=== PATIENT | male | born 1985 | race Caucasian/White ===

== ENCOUNTER 2025-08-26 20:27 | Emergency (ER) | payer OTHER, SELFPAY ==
--- OUTSIDE RECORDS SUMMARY | 2025-08-26 20:31 | XMS_ITS | Clinical Summary ---
Author Organization [address] Address [address] [place] [id number] Care Team Providers Care Inspector Fuel Hose Name Role Phone Unknown, Notinfile Primary Care Provider Unavail able Allergies No known active allergies Medications lidocaine viscous (XYLOCAINE) 2 % solutionIndicati ons:Strep pharyngitis Apply 10 mL to the mouth or throat every 6 (six) hours as needed (sore throat) May mix with 30 ml of Mylanta 100 mL 05/19/2025 Active Active Problems No known active problems Social History Tobacco Use Types Packs/Day Years Used Date Smoking Tobacco: Never Assessed Sex and Gender Information Value Date Recorded Sex Assigned at Not on file 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 Gender Identity Not on file Sexual Orientation Not on file Last Filed Vital Signs Vital Sign Reading Time Taken Comments Blood Pressure 144/83 05/19/2025 4:10 PM CDT Pulse 114 05/19/2025 4:10 PM CDT Temperature 37.1 C (98.8 F) 05/19/2025 4:10 PM CDT Respiratory Rate 20 05/19/2025 4:10 PM CDT Oxygen Saturation 95% 05/19/2025 4:10 PM CDT Inhaled Oxygen Concentration - - Weight 82.1 kg (181 lb 1.6 oz) 05/19/2025 4:10 P M CDT Height - - Body Mass Index - - Plan of Treatment Health Maintenance Due Date Last Done Comments Depression Screening 1983 Hepatitis C Screening 1983 Varicella Vaccines (1 of 2 - 13+ 2-dose series) 11/29/1996 Regular Well Visit/Exam 18-64 11/29/2001 HPV Vaccines (1 - 3-dose SCDM series) 11/29/2010 DTaP/Tdap/Td Vaccine (2 - Td or Tdap) 01/14/2032 01/13/2022, 08/14/2013, 04/04/2002 Hepatitis B Screening Completed 02/16/2025, 025 Covid-19 Vaccine Completed 05/11/2025, , 05/29/2023, Additional history exists Influenza Vaccine Completed 05/11/2025, , 05/29/2023, Additional history exists Pneumococcal vaccine <65 Aged Out No longer eligible based on patient's age to complete this topic Insurance [employer] Care Teams Inspector Fuel Hose Relationship Specialty Start Date End Date Unknown, Notinfile PCP - General 05/19/25
--- OUTSIDE RECORDS SUMMARY | 2025-08-26 20:31 | XMS_ITS | Clinical Summary ---
Author Organization [facility] Address [address] [place] [address] Phone Care Team Providers Care Manager Application Name Role Phone Jeannette Marquez DO Primary Care Provider [phone] Allergies No known active allergies Medications fexofenadine (OSMEL) 180 mg tablet Take 180 mg by mouth daily. Active ALPRAZolam (XANAX) 0.5 mg tablet TAKE 1 TABLET BY MOUTH 30 MINUTES TO 1 HOURS PRIOR TO PROCEDURE 2 Active traMADoL (ULTRAM) 50 mg tablet TAKE 1 TABLET BY MOUTH EVERY 6 HOURS 2 Active Active Problems No known active problems Family History Medical History Relation Name Comments Hypertension Brother Hypertension Father Hypertension Mother Asthma Neg Hx Bronchitis Neg Hx Cancer Neg Hx Diabetes Neg Hx Emphysema Neg Hx Heart Failure Neg Hx Lung Cancer Neg Hx Mesothelioma Neg Hx Relation Name Status Comments Brother Father Mother Social History Tobacco Use Types Packs/Day Years Used Date Smoking Tobacco: Never Smokeless Tobacco: Never Tobacco Cessation:Counseling Given: Not Answered Alcohol Use Standard Drinks/Week Comments Yes 0 (1 standard drink = 0.6 oz pur e alcohol) Sex and Gender Information Value Date Recorded Sex Assigned at Not on file Legal Sex Male 11:23 AM CDT Gender Identity Not on file Sexual Orientation Not on file Last Filed Vital Signs Vital Sign Reading Time Taken Comments Blood Pressure 143/95 07/09/2022 11:21 AM SPIRAL RUNNER Pulse 93 07/09/2022 11:21 AM SPIRAL RUNNER Temperature 36.7 C (98 F) 07/09/2022 11:21 AM SPIRAL RUNNER Respiratory Rate 18 07/09/2022 11:21 AM SPIRAL RUNNER Oxygen Saturation 97% 07/09/2022 11:21 AM SPIRAL RUNNER Inhaled Oxygen Concentration - - Weight 83 kg (183 lb) 07/09/2022 11:21 AM SPIRAL RUNNER Height 167.6 cm (5' 6) 07/09/2022 11:21 AM SPIRAL RUNNER Body Mass Index 29.54 07/09/2022 11:21 AM SPIRAL RUNNER Plan of Treatment Health Maintenance Due Date Last Done Comments DTAP/TDAP/TD VACCINES (1 - Tdap) 11/29/2002 HEPATITIS B VACCINES (1 of 3 - 19+ 3-dose series) 12/2002 INFLUENZA VACCINE (#1) 2025 HPV VACCINES (No Doses Required) Completed Insurance [employer] PPO [id number] Care Teams Manager Application Relationship Specialty Start Date End Date Jeannette Marquez DO [address] [place] [address] [place] [address] PCP - General Family Practice 08/05/19
--- OUTSIDE RECORDS SUMMARY | 2025-08-26 20:31 | XMS_ITS | Clinical Summary ---
Author Organization [facility] Address [facility] [place] [address] Care Team Providers Care Senior Receptionist Name Role Phone Pratima Frausto SURGICAL ASSISTANT CERTIFIED Primary Care Provider Allergies No known active allergies Medications loratadine (EQ ALLERGY RELIEF) 10 MG tablet Take 1 tablet (10 mg total) by mouth daily as needed for Allergies. Active CPAP MACHINE 1 Device by Does not apply route nightly at bedtime. Active Active Problems Problem Noted Date Diagnosed Date Vitamin D insufficiency 01/16/2025 Overview (01/16/2025): Component Ref Range & Units 01/09/25 1302 VITAMIN D 25 HYDROXY TOTAL S/P/B 30 - 100 ng/mL 26 Low Assessment & Plan (01/16/2025 3:35 PM CDT): Recommended to take vitamin D3 1000 IU daily. Depression screening negative 01/16/2025 Overview (01/16/2025): PHQ-9: 01/16/2025 2:58 PM 10/20/2024 2:30 PM PHQ2/PHQ 9 DEPRESSION SCREEN QUESTIONAIRE Little interest or pleasure in doing things Not at all Not at all Feeling down, depressed, or hopeless Not at all Not at all Patient Health Questionnaire-2 Score 0 0 Trouble falling or staying asleep, or sleeping too much Not at all Feeling tired or having little energy Not at all Poor appetite or overeating Not at all Feeling bad about yourself - or that you are a failure or have let yourself or your family down Not at all Trouble concentrating on things, such as reading the newspaper or watching television Not at all Moving or speaking so slowly that other people could have noticed? Or the opposite - being so fidgety or restless that you have been moving around a lot more than usual. Not at all Thoughts that you would be better off or hurting yourself in some way Not at all Patient Health Questionnaire-9 Score 0 How difficult have these problems made it for you to do your work, take care of things at home, or get along with other people? Not difficult at all Not difficult at all Assessment & Plan (01/16/2025 3:36 PM CDT): Depression screening negative. Discussed with patient. He endorsed no questions. Seasonal allergies 10/20/2024 Overview (10/20/2024): Initial visit 10/20/2024: He reports he takes generic Claritin as needed for seasonal allergies. He reports he does not take on a daily basis. Assessment & Plan (10/20/2024 3:49 PM ADMINISTRATIVE ASSISTANT OFFICE MANAGER): Continue loratadine 10 mg daily as needed. Mixed hyperlipidemia 10/20/2024 Overview (01/16/2025): Initial visit 10/20/2024: He reports he recently had lab testing done through his workplace and his cholesterol was elevated. He reports his cholesterol has been elevated the past however was recommended to make dietary changes. 10/03/2024: Total cholesterol 220 Triglycerides 152 HDL 48 LDL cholesterol 144 Component Ref Range & Units 01/09/25 1302 CHOLESTEROL <200 mg/dL 211 High HDL > OR = 40 mg/dL 47 TRIGLYCERIDES <150 mg/dL 83 LDL (CALCULATED) mg/dL (calc) 145 High Comment: Reference range: <100 Desirable range <100 mg/dL for primary prevention; <70 mg/dL for patients with CHD or diabetic patients with > or = 2 CHD risk factors. LDL-C is now calculated using the Nel calculation, which is a validated novel method providing better accuracy than the Friedewald equation in the estimation of LDL-C. Marcello HERNÁNDEZ et al. GAYLA. 2013;310(19): 6335-4270 (http://education.Predikt.Beneq/faq/LMD400) CHOL/HDL RATIO <5.0 (calc) 4.5 NON HDL CHOLESTEROL <130 mg/dL (calc) 164 High Comment: For patients with diabetes plus 1 major ASCVD risk factor, treating to a non-HDL-C goal of <100 mg/dL (LDL-C of <70 mg/dL) is considered a therapeutic option. Resulting Agency [facility] Assessment & Plan (01/16/2025 2:48 PM CDT): No medications necessary at this time. The 10-year ASCVD risk score (Elvia PASCUAL, et al., 2019) is: 1.4% Values used to calculate the score: Age: 39 years Sex: Male Is Non- : No Diabetic: No Tobacco smoker: No Systolic Blood Pressure: 123 mmHg Is BP treated: No HDL Cholesterol: 47 mg/dL Total Cholesterol: 211 mg/dL Assessment & Plan (10/20/2024 3:55 PM ADMINISTRATIVE ASSISTANT OFFICE MANAGER): ASCVD risk score calculated the patient's risk calculated is 1.4%. Discussed with him that there is no specific necessity to start him on cholesterol-lowering medication at this time. I recommend in the setting of his age and comorbidities that he has CT coronary artery calcium score completed which is an [id number] cost approximately $100. Patient is agreeable. Testing has been ordered. He was also counseled regarding dietary changes that can be made such as decreasing intake of saturated fats and increasing intake of dietary fiber through whole grains and legumes. Plan to repeat fasting lipid panel in 3 months to reevaluate in the setting of patient's lifestyle changes. Prediabetes 10/20/2024 Overview (01/16/2025): Initial visit 10/20/2024: Hemoglobin A1c 10/03/2024 returned 5.9%. Patient reports that he has recently made some dietary changes in the setting of receiving abnormal lab results. He reports he is attempted to cut out sugary and ultra processed foods. Component Ref Range & Units 01/09/25 1302 HGB A1C <5.7 % of total Hgb 5.7 High Assessment & Plan (01/16/2025 3:35 PM CDT): He is not interested in medication at this time. Discussed with patient that prediabetes can be improved with lifestyle modifications. Continue increasing exercise, especially aerobic exercise as well as integrating weight training into routine and continue making dietary changes. Assessment & Plan (10/20/2024 3:55 PM ADMINISTRATIVE ASSISTANT OFFICE MANAGER): Counseled patient to continue avoiding ultra processed foods and he was counseled at length regarding diet and exercise recommendations. Plan to repeat fasting blood glucose and hemoglobin A1c in 3 months to reevaluate in the setting of patient's lifestyle changes. Family history of coronary artery disease 2024 Overview (01/16/2025): 01/16/2025: Paternal grandfather with first one at 59 Family history of craniosynostosis 10/20/2024 Overview (10/20/2024): Initial visit 10/20/2024: In patient and in patient's son Overweight (BMI 25.0-29.9) 10/20/2024 Overview (10/20/2024): Initial visit 10/20/2024: Patient reports that he has recently made some dietary changes in the setting of receiving abnormal lab results. He reports he is attempted to cut out sugary and ultra processed foods. Assessment & Plan (01/16/2025 3:37 PM CDT): Weight has decreased. Continue diet and lifestyle modifications. Assessment & Plan (10/20/2024 3:53 PM ADMINISTRATIVE ASSISTANT OFFICE MANAGER): He is counseled at length regarding diet and exercise recommendations. Need for prophylactic vaccination against hepati tis B virus 10/20/2024 Overview (10/20/2024): Initial visit 10/20/2024: Patient denies known previous immunization against hepatitis B Assessment & Plan (01/16/2025 3:36 PM CDT): Office is out of hepatitis B vaccine at this time. Patient is to return for a nurse visit for hepatitis B immunization. In late April/early June 20, patient will receive third dose of hepatitis B vaccine. Assessment & Plan (10/20/2024 3:58 PM ADMINISTRATIVE ASSISTANT OFFICE MANAGER): Counseled patient and recommended vaccine series which is 3 dose series. He was given CDC VIS and endorsed no questions. Family history of hypertension 10/20/2024 Overview (10/20/2024): Initial visit 10/20/2024: In multiple family members Obstructive sleep apnea 01/15/2015 Overview (10/20/2024): Initial visit 10/20/2024: He reports he was diagnosed with severe obstructive sleep apnea in 2014. He reports he has been on CPAP since 2014 overnight at pressure 14. He reports he was previously seen by system planning engineer Patric Patel however has not been in a few years. Assessment & Plan (01/16/2025 3:36 PM CDT): Continue wearing CPAP. Recommended patient to reestablish care with pulmonology. Assessment & Plan (10/20/2024 3:49 PM ADMINISTRATIVE ASSISTANT OFFICE MANAGER): Continue wearing CPAP. Recommended patient to reestablish care with pulmonology. Resolved Problems Problem Noted Date Diagnosed Date Resolved Date Pharyngitis, acute 11/08/2016 Overview (10/20/2024): Date Onset: 11/08/2016 Encounters Date Type Department Care Team Description 07/03/2025 10:40 AM ADMINISTRATIVE ASSISTANT OFFICE MANAGER Allied Health/Nurse Visit [facility] Medical Group Multispecialty Care - [address] [place] [address] Berta Contreras, Imm/Inj 07/03/2025 Travel from Last 3 Months Immunizations Immunization Administration Dates Next Due FLUCELVAX (ccIIV3, TRIVALENT, 0.5mL) 05/09/2024 Hepatitis B (Recombivax Hb 10 Mcg) 07/03/2025,,10/20/2024 Influenza Adult (Generic) 05/29/2023,02/2022,06/28/2021,2019,05/14/2018 PFIZER COVID-19 (12+) MRNA, LNP-S, PF, JORGE-SUCROSE, 30 MCG/0.3 ML (COMIRNATY) 05/29/2023 Td, Adsorbed, Preservative F ree, Adult Use, Lf Unspecified 08/14/2013 Tdap (Generic) 01/13/2022 Family History Medical History Relation Comments Hypertension Brother Diabetes Father Hypertension Father Stroke Father No Known Problems Maternal Grandfather No Known Problems Maternal Grandmother Hypertension Mother Coronary artery disease Paternal Grandfather Stroke Paternal Grandfather Cancer Paternal Grandmother Leukemia Hypothyroidism Sister 1 No Known Problems Sister 2 Craniosynostosis Son Relation Status Comments Brother Alive Father Alive Maternal Grandfather Unknown Maternal Grandmother Mother Alive Paternal Grandfather Paternal Grandmother Sister 1 Alive Sister 2 Alive Son Alive Social History Tobacco Use Types Packs/Day Years Used Date Smoking Tobacco: Never Smokeless Tobacco: Never Tobacco Cessation:Counseling Given: No Alcohol Use Standard Drinks/Week Comments Not Currently 0 (1 standard drink = 0.6 oz pur e alcohol) PHQ-2 Answer Date Recorded Patient Health Questionnaire-2 Score 0 01/16/2025 Sex and Gender Information Value Date Recorded Sex Assigned at Male 10/20/2024 2:27 PM ADMINISTRATIVE ASSISTANT OFFICE MANAGER Legal Sex Male 7:53 AM CDT Gender Identity Male 10/20/2024 2:27 PM ADMINISTRATIVE ASSISTANT OFFICE MANAGER Sexual Orientation Not on file Last Filed Vital Signs Vital Sign Reading Time Taken Comments Blood Pressure 123/73 01/16/2025 2:41 PM CDT Pulse 73 01/16/2025 3:33 PM CDT Temperature 37.1 C (98.7 F) 01/16/2025 2:41 PM CDT Respiratory Rate 16 01/16/2025 2:41 PM CDT Oxygen Saturation 97% 01/16/2025 2:41 PM CDT Inhaled Oxygen Concentration - - Weight 80.3 kg (177 lb) 01/16/2025 2:41 PM CDT Height 167.6 cm (5' 6) 01/16/2025 2:41 PM CDT Body Mass Index 28.57 01/16/2025 2:41 PM CDT Plan of Treatment Upcoming Encounters Date Type Department Care Team (Late st Contact Info) Description 08/31/2025 10:20 AM ADMINISTRATIVE ASSISTANT OFFICE MANAGER Allied Health/Nurse Visit [facility] Medical [facility] Multispecialty Care - [place] [address] [place] [address] Berta Contreras, DO [address] [place] [address] 10/01/2025 1:20 PM ADMINISTRATIVE ASSISTANT OFFICE MANAGER Office Visit [facility] Medical [facility] Multispecialty Care - [place] [address] [place], [place] [id number] Pratima Frausto, SURGICAL ASSISTANT CERTIFIED [address] [place] [address] Health Maintenance Due Date Last Done Comments Hepatitis C 11/29/2001 HPV Vaccines (1 - 3-dose SCDM series) 11/29/2010 Annual Physical 01/16/2026 01/16/2025 DTaP, Tdap and Td Vaccines (2 - Td or Tdap) 01/14/2032 01/13/2022, 08/14/2013 PHQ-2 (Physician [place]) Completed 01/16/2025 COVID-19 Vaccine Completed 05/11/2025, , 05/29/2023, Additional history exists Influenza Adult Completed 05/11/2025, 04/27, 05/29/2023, Additional history exists Hepatitis B Vaccines Completed 07/03/2025, 01/16/2025, 10/20/2024 Hepatitis A Vaccines Aged Out No long er eligible based on patient's age to complete this topic Meningococcal B Vaccine Aged Out No l onger eligible based on patient's age to complete this topic Meningococcal Vaccine Aged Out No pito caity eligible based on patient's age to complete this topic Pneumococcal Vaccine: Pediatrics (0 to 5 Years) and At-Risk Patients (6 to 49 Years) Aged Out No longer eligible based on patient's age to complete this topic RSV Immunizations Under 20 Months Aged Out No longer eligible based on patient's age to complete this topic Insurance [facility] Care Teams Senior Receptionist Relationship Specialty Start Date End Date Pratima Frausto NP [address] [place] [address] PCP - General NURSE PRACTITIONER 04/14/25
[2025-08-26 20:42] VITALS: BP 153/79; PULSE 104; RESP 16; TEMP 36.7; O2SAT 100
--- NOTE | 2025-08-26 21:57 | ED_ITS ---
HPI - Wound/Laceration General Chief Complaint: Wound/Laceration Stated Complaint: cat scratch left hand Time Seen by Provider: 08/26/25 20:53 Source: patient Mode of arrival: ambulatory Limitations: no limitations History of Present Illness HPI narrative: This is a 39-year-old male that presents to the emergency department after a scratch to the left hand from his cat. His cat had caught a bat. He then caught the bat and brought it into the ER. Patient is up to date on tetanus vaccination. Related Data Allergies Allergy/AdvReac Type Severity Reaction Status Date / Time No Known Allergies Allergy Verified 08/26/25 20:29 Review of Systems Review of Systems: All systems reviewed & are unremarkable except as noted in HPI and below Exam Narrative: GENERAL: Well-appearing, well-nourished, and in no acute distress. HEAD: Normocephalic, atraumatic. EYES: EOMI. EXTREMITIES: Normal range of motion. No edema. Small abrasion to the left hand dorsal surface SKIN: Warm, dry, no rash. NEURO: No focal deficits. Alert and oriented x3. PSYCH: Normal mood and affect Course Vital Signs Vital signs: Vital Signs Temperature 98.1 F 08/26/25 20:42 Pulse Rate 104 H 08/26/25 20:42 Respiratory Rate 16 08/26/25 20:42 Blood Pressure 153/79 H 08/26/25 20:42 Pulse Oximetry 100 08/26/25 20:42 Oxygen Delivery Room Air 08/26/25 20:42 Temperature 98.1 F 08/26/25 20:42 Pulse Rate 104 H 08/26/25 20:42 Respiratory Rate 16 08/26/25 20:42 Blood Pressure 153/79 H 08/26/25 20:42 Pulse Oximetry 100 08/26/25 20:42 Oxygen Delivery Room Air 08/26/25 20:42 MDM MDM Narrative Medical decision making narrative: Patient presents to the emergency department after getting scratched by his cat. He was also exposed to a bat. Will be started on Augmentin. He is up-to-date on tetanus vaccination. Will also be started on rabies vaccination series. I did speak with infection Control about this. Will follow up for further vaccination series Differential Diagnosis Differential Diagnosis: abrasion, rabies exposure Critical Care Time Critical Care Time Critical Care Time: No Discharge Plan Discharge Clinical Impression: Cat scratch, Exposure to bat without known bite Patient Disposition: Home Condition: Stable Instructions: Antibiotic Form, Rabies Vaccine (By injection), Animal Bite (ED) Additional Instructions: Return to the emergency department if you experience fever, redness or swelling of your wound, abnormal drainage from your wound, or any other symptoms that are concerning to you. Apply antibiotic ointment daily. Do not soak the wound. Clean with mild soap and water daily. Take oral antibiotic as prescribed Our infection control nurse will get ahold of you on Sunday to get the rest of your vaccination series set up Follow-up with your primary care doctor for wound check Patient Language: Estonian Prescriptions: New amoxicillin-pot clavulanate 875-125 mg tablet 1 tablet PO Q12H 7 Days Qty: 14 0RF Follow-up/Referrals: Jimmy,Jeannette Zarate DO [Primary Care Provider, Unknown]
[2025-08-26] MEDS: RABIES VACCINE (RABAVERT) 2.5 UNITS VIAL IM (22:19)
[2025-08-26] MEDS: RABIES IMMUNE GLOBULIN/PF 1,500 UNITS/5 ML VIAL 1500 UNITS IM (22:21)
[2025-08-26 22:40] VITALS: BP 154/92; PULSE 82; RESP 18; O2SAT 98
== END 2025-08-26 22:45 | disposition home or self-care (01) ==
PROVIDERS: Emergency Provider Physician Assistant; PCP Family Medicine Sports Medicine
DX: S60.512A Abrasion of left hand, initial encounter (principal); W55.03XA Scratched by cat, initial encounter; Z29.14 Encounter for prophylactic rabies immune globulin; Z20.3 Contact with and (suspected) exposure to rabies; Z23 Encounter for immunization
CPT/HCPCS: 90375; 90471; 90472; 90675; 96372; 99283; A9270